=== PATIENT | female | born 1965 | race Caucasian/White ===

== ENCOUNTER 2017-03-31 15:20 | Emergency (ER) | payer OTHER ==
[~2017-03-31] VITALS: Ht 152.4 cm; Wt 53.5 kg
[~2017-03-31 15:20] MED LIST: AMBIEN10 MG PO; BIAXIN FILMTAB500 MG PO; EC NAPROSYN500 MG PO; FER300 PO; HYDROXYCHLOROQ200 MG PO; LIPI10 PO; LYRICA75 M1 PO; PREMARIN0.625 MG PO; PROTONIX20 MG PO; SERTRALINE HYDR50 M1 PO; TESSALON PERLE100 MG PO
[2017-03-31 15:31] VITALS: Ht 152.4 cm; Wt 53.5 kg
[2017-03-31 18:35] VITALS: BP 110/76
== END 2017-03-31 18:35 | disposition home or self-care (01) ==
LOC: ED 15:20
DX: S40.261A Insect bite (nonvenomous) of right shoulder, initial encounter (principal); W57.XXXA Bitten or stung by nonvenomous insect and other nonvenomous arthropods, initial encounter; Y93.89 Activity, other specified; Y92.89 Other specified places as the place of occurrence of the external cause; Y99.8 Other external cause status; E78.00 Pure hypercholesterolemia, unspecified; Z88.0 Allergy status to penicillin; Z88.8 Allergy status to other drugs, medicaments and biological substances
CPT/HCPCS: J1885; Q0163

== ENCOUNTER 2017-09-22 13:48 | Emergency (ER) | payer OTHER ==
[~2017-09-22] VITALS: Ht 157.5 cm; Wt 59.0 kg
[2017-09-22 13:54] VITALS: Ht 157.5 cm; Wt 59.0 kg
[2017-09-22 15:20] LABS: PLATELET COUNT 260 x10^3mcL (130-400); RED CELL DISTRIBUTION WIDTH 12.9 % (11.5-14.5)
[2017-09-22 15:23] LABS: CALCIUM 8.4 mg/dL (8.5-10.1); CHLORIDE SERUM 100 mmol/L (98-107); CREATININE SERUM 0.7 mg/dL (0.6-1.0); GFR1 > 60 mL/min; GLUCOSE SERUM 92 mg/dL (74-106); POTASSIUM SERUM 3.9 mmol/L (3.5-5.1); SODIUM SERUM 137 mmol/L (136-145)
[2017-09-22 15:30] LABS: ALBUMIN 3.9 g/dL (3.4-5.0); ALKALINE PHOSPHATASE 103 U/L (46-116); ALT/SGPT 21 U/L (14-59); AST/SGOT 18 U/L (15-37); BILIRUBIN TOTAL 0.3 mg/dL (0.20-1.00); TOTAL PROTEIN, SERUM 7.5 g/dL (6.4-8.2)
[2017-09-22 16:49] VITALS: BP 109/60
== END 2017-09-22 16:49 | disposition home or self-care (01) ==
LOC: ED 13:48
PROVIDERS: Emergency Medicine
DX: R07.89 Other chest pain (principal); E78.00 Pure hypercholesterolemia, unspecified; Z90.710 Acquired absence of both cervix and uterus; Z88.0 Allergy status to penicillin; Z88.8 Allergy status to other drugs, medicaments and biological substances
CPT/HCPCS: 36415; 85378